=== PATIENT | male | born 1985 | race Caucasian/White ===

== ENCOUNTER 2022-06-18 08:27 | Emergency (ER) | payer OTHER, SELFPAY ==
[2022-06-18 09:05] VITALS: BP 149/93
[2022-06-18 09:09] VITALS: BP 149/93; PULSE 86; RESP 18; TEMP 36.2; O2SAT 98; BMI 31.7
--- NOTE | 2022-06-18 09:26 | ED.GENADULT ---
HPI - General Adult General Time Seen by Provider: 09:25 Date Seen: 06/18/22 Chief complaint: Extremity Pain/Injury, Upper Stated complaint: Swollen left elbow Time Seen by Provider: 06/18/22 08:28 Source: patient Mode of arrival: ambulatory Limitations: no limitations History of Present Illness HPI narrative: Patient is a 36 year white male reports his tetanus was within 5 years, who presents with left elbow swelling today, denies trauma or injury. Reports that is tender, somewhat reddened. He is nondiabetic, does have hypertension, sees Dr. Mejias in [place]. 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 Range of motion is limited secondary to discomfort in the elbow area, he has not had rigors or chills he has no temperature today. Related Data Home Medications Medication Instructions Recorded Confirmed atenolol 50 mg tablet mg 06/18/22 Previous Rx's Medication Instructions Recorded amoxicillin 875 mg-potassium 1 tab PO BID #14 tabs 06/18/22 clavulanate 125 mg tablet Allergies Allergy/AdvReac Type Severity Reaction Status Date / Time No Known Drug Allergies Allergy Verified 06/18/22 09:09 Review of Systems Status of ROS: Reports: 6 or more systems reviewed and unremarkable except as noted in History and below PFSH PFS Social History Smoking Status: Never smoker Do you use any of these nicotine containing products: None Second hand tobacco smoke exposure: No How often do you have a drink containing alcohol: 4 or more times a week How many standard drinks containing alcohol do you have on a typical day: 1 or 2 How often do you have six or more drinks on one occasion: Never AUDIT-C Alcohol total score: 4 Non-prescribed substance use: denies use Exam Narrative: Exam Narrative: Objective: Patient is alert or x3 vital signs unremarkable he is afebrile Left elbow shows olecranon bursitis slightly warm there is a just a small amount of abrasion over the tip of the olecranon, he does have some fluid in the olecranon bursa. Range of motion of the elbows fairly full distal CMS is intact Const: Vital Signs, click to edit/add: Vital Signs - 24 hr 06/18/22 09:09 Temperature 97.1 F L Pulse Rate [Right Pulse Oximeter] 86 Respiratory Rate 18 Blood Pressure [Ri ght Upper Arm] 149/93 H Pulse Oximetry 98 Oxygen Delivery Me thod Room Air Course Vital Signs Vital signs: Initial Vital Signs Temperature 97.1 F L 06/18/22 09:09 Temperature Source Temporal Artery Scan 06/18/22 09:09 Pulse Rate 86 06/18/22 09:09 Respiratory Rate 18 06/18/22 09:09 Blood Pressure 149/93 H 06/18/22 09:09 Blood Pressure Mean 111 06/18/22 09:09 Blood Pressure Position Sitting 06/18/22 09:09 Pulse Oximetry 98 06/18/22 09:09 Oxygen Delivery Method 06/18/22 09:09 Vital Signs Temperature 97.1 F L 06/18/22 09:09 Pulse Rate 86 06/18/22 09:09 Respiratory Rate 18 06/18/22 09:09 Blood Pressure 149/93 H 06/18/22 09:09 Pulse Oximetry 98 06/18/22 09:09 Oxygen Delivery Method 06/18/22 09:09 Temperature 97.1 F L 06/18/22 09:09 Pulse Rate 86 06/18/22 09:09 Respiratory Rate 18 06/18/22 09:09 Blood Pressure 149/93 H 06/18/22 09:09 Pulse Oximetry 98 06/18/22 09:09 Oxygen Delivery Method 06/18/22 09:09 Medical Decision Making MDM Narrative Medical decision making narrative: Patient has left olecranon bursitis, at this point I think it might respond antibiotics alone, and keeping it in a sling as well as warm soaks. Certainly is a chance that this worsens he might need this opened or drained, but at this point I think he might get by with concert more conservative treatment. Patient with mutual decision making was in agreement. He will follow up with Dr. Mejias in 2 days, would have him do Augmentin 875 b.i.d. starting today, will given Rocephin 1 g IM now. Arm sling, warm soaks as mention, return sooner problems concerns worsening, such as chills rigors or other concern Discharge Plan Discharge Clinical Impression: Olecranon bursitis of left elbow Patient Disposition: Home, Self-Care Condition: Stable Additional Instructions: Avoid trauma to the elbow, arm sling, hot pack or warm soaking, patient reports he is up-to-date on tetanus, Augmentin 875 b.i.d. x7 days, follow-up with Dr. Mejias in 48 hours, light activity with the arm. Activity Level: Light activity Discharge Diet: Regular Prescriptions: New amoxicillin-pot clavulanate 875-125 mg tablet 1 tab PO BID Qty: 14 0RF No Action atenolol 50 mg tablet Stand Alone Forms: [employer] Info Instructions
[2022-06-18] MEDS: cefTRIAXone 1 GM VIAL IM (09:45)
[2022-06-18] MEDS: LIDOCAINE 1 % PF 30 ML INJECTION (09:51)
[2022-06-18 09:52] VITALS: BP 147/88; PULSE 79; O2SAT 99
--- NOTE | 2022-06-18 10:00 | ED.NURSE ---
Medium arm sling applied to pt L arm.
[2022-06-18 10:02] VITALS: BP 135/94; PULSE 78; O2SAT 97
== END 2022-06-18 10:03 | disposition home or self-care (01) ==
LOC: ED 09:32
PROVIDERS: Emergency Provider Family Medicine; PCP Family Medicine
DX: M70.22 Olecranon bursitis, left elbow (principal)
CPT/HCPCS: 96372; 99283; J0696; J2001